=== PATIENT | male | born 1965 | race Caucasian/White ===

== ENCOUNTER 2020-06-10 07:09 | Outpatient (REF) | payer OTHER, SELFPAY ==
[2020-06-10 11:04] LABS: MANUAL DIFF FLAG NO
[2020-06-10 11:11] LABS: Basophils Percent Auto 0.3 % (0-2); Eosinophils Absolute Auto 0.1 X10*3/uL (0.0-0.4); Hematocrit 46.7 % (42-52); Imm Gran Abs Auto 0.01 X10*3/uL (0.00-0.03); Imm Gran Pct Auto 0.2 % (0.0-0.4); Lymphocytes Absolute Auto 2.4 X10*3/uL (1.2-4.9); Lymphocytes Percent Auto 42.1 % (20-40); Mean Corpuscular HGB Conc 34.3 g/dl (31.0-36.0); Mean Corpuscular Hemoglobin 31.6 pg (27.0-33.0); Mean Corpuscular Volume 92.1 fL (80-98); Mean Platelet Volume 10.6 fL (9.4-12.4); Monocytes Absolute Auto 0.6 X10*3/uL (0.1-1.2); Monocytes Percent Auto 10.4 % (2-11); Neutrophils Absolute Auto 2.7 X10*3/uL (2.0-8.3); Platelet Count 240 X10*3/uL (160-400); Red Blood Count 5.07 X10*6/uL (4.60-5.80); White Blood Count 5.8 X10*3/uL (4.8-10.8)
[2020-06-10 11:40] LABS: Alanine Aminotransferase 26 U/L (0-40); Alkaline Phosphatase 92 U/L (39-117); Anion Gap 13 (12-20); Aspartate Amino Transferase 16 U/L (5-37); Bilirubin Total 0.6 mg/dL (0.0-1.0); Blood Urea Nitrogen 22 mg/dL (9-16); Calcium 8.8 mg/dL (8.4-10.2); Carbon Dioxide 25 mmol/L (22-29); Chloride 105 mmol/L (96-108); Cholesterol 161 mg/dL; Estimated Glomerular Filt Rate > 60; Glucose Fasting 89 mg/dL (60-99); HDL Cholesterol 45 mg/dL; LDL Cholesterol Calculated 95 mg/dl; Potassium 4.4 mmol/l (3.3-5.1); Sodium 139 mmol/L (135-145); Total Protein 6.9 g/dL (6.5-8.0); Triglycerides 107 mg/dL
[2020-06-10 12:04] LABS: Prostate Specific Antigen 0.76 ng/mL (<0.05-4.0); Vitamin D 25-OH Total 20.7 ng/mL (>30)
== END 2020-06-10 07:10 | disposition home or self-care (01) ==
LOC: HO.HMGCLDS 07:09
PROVIDERS: PCP Internal Medicine; Visit Provider Internal Medicine
DX: E66.9 Obesity, unspecified (principal); E55.9 Vitamin D deficiency, unspecified; Z12.5 Encounter for screening for malignant neoplasm of prostate
CPT/HCPCS: 36415; 80053; 80061; 82306; 84153; 85025

== ENCOUNTER → 2020-06-18 07:40 | Outpatient (BNVA) | payer SELFPAY | PROVIDERS: PCP Internal Medicine; Visit Provider Internal Medicine | DX: Z02.79 Encounter for issue of other medical certificate (principal) ==

== ENCOUNTER 2021-05-17 08:51 | Outpatient (REF) | payer BC, SELFPAY ==
[2021-05-17 11:45] LABS: MANUAL DIFF FLAG NO
[2021-05-17 11:47] LABS: Basophils Percent Auto 0.4 % (0-2); Eosinophils Percent Auto 0.8 % (0-4); Hematocrit 47.2 % (42.0-52.0); Hemoglobin 16.1 g/dl (14.0-18.0); Imm Gran Abs Auto 0.01 X10*3/uL (0.00-0.03); Imm Gran Pct Auto 0.2 % (0.0-0.4); Lymphocytes Absolute Auto 1.5 X10*3/uL (1.2-4.9); Lymphocytes Percent Auto 28.7 % (20-40); Mean Corpuscular HGB Conc 34.1 g/dl (31.0-36.0); Mean Corpuscular Hemoglobin 31.8 pg (27.0-33.0); Mean Corpuscular Volume 93.1 fL (80.0-98.0); Mean Platelet Volume 10.2 fL (9.4-12.4); Monocytes Absolute Auto 0.9 X10*3/uL (0.1-1.2); Monocytes Percent Auto 16.3 % (2-11); Neutrophils Absolute Auto 2.8 x10*3/uL (2.0-8.3); Neutrophils Percent Auto 53.6 % (45-73); Platelet Count 264 X10*3/uL (160-400); Red Blood Count 5.07 X10*6/uL (4.60-5.80); Red Cell Distribution Width 11.9 % (11.0-16.0); White Blood Count 5.3 X10*3/uL (4.8-10.8)
[2021-05-17 12:21] LABS: Alanine Aminotransferase 28 U/L (0-40); Albumin Level 4.2 g/dL (3.5-5.0); Alkaline Phosphatase 95 U/L (39-117); Anion Gap 11 (12-20); Aspartate Amino Transferase 18 U/L (5-37); Bilirubin Total 0.8 mg/dL (0.0-1.0); Blood Urea Nitrogen 21 mg/dL (9-16); Calcium 9.5 mg/dL (8.4-10.2); Carbon Dioxide 29 mmol/L (22-29); Chloride 104 mmol/L (96-108); Cholesterol 153 mg/dL; Estimated Glomerular Filt Rate > 60; Glucose Fasting 91 mg/dL (60-99); HDL Cholesterol 38 mg/dL; LDL Cholesterol Calculated 99 mg/dl; Potassium 4.8 mmol/L (3.3-5.1); Sodium 139 mmol/L (135-145); Total Protein 7.1 g/dL (6.5-8.0); Triglycerides 81 mg/dL
[2021-05-17 12:44] LABS: Thyroid Stimulating Hormone 0.94 uIU/mL (0.32-4.0); Vitamin D 25-OH Total 22.8 ng/mL (>30)
[2021-05-17 13:29] LABS: PSA,Total (Free>4and<10) 0.77 ng/mL (0.00-4.00)
== END 2021-05-17 08:52 | disposition home or self-care (01) ==
LOC: HO.HMGCLDS 08:51
PROVIDERS: PCP Internal Medicine; Visit Provider Internal Medicine
DX: I10 Essential (primary) hypertension (principal); E55.9 Vitamin D deficiency, unspecified; Z12.5 Encounter for screening for malignant neoplasm of prostate
CPT/HCPCS: 36415; 80053; 80061; 82306; 84153; 84443; 85025

== ENCOUNTER 2022-03-25 07:28 | Outpatient (REF) | payer BC, SELFPAY ==
[2022-03-25 11:27] LABS: MANUAL DIFF FLAG NO
[2022-03-25 11:38] LABS: Basophils Percent Auto 0.6 % (0-2); Eosinophils Absolute Auto 0.1 X10*3/uL (0.0-0.4); Eosinophils Percent Auto 1.3 % (0-4); Hematocrit 45.2 % (42.0-52.0); Hemoglobin 15.6 g/dl (14.0-18.0); Imm Gran Abs Auto 0.01 X10*3/uL (0.00-0.03); Imm Gran Pct Auto 0.2 % (0.0-0.4); Lymphocytes Absolute Auto 1.6 X10*3/uL (1.2-4.9); Lymphocytes Percent Auto 30.6 % (20-40); Mean Corpuscular HGB Conc 34.5 g/dl (31.0-36.0); Mean Corpuscular Hemoglobin 31.4 pg (27.0-33.0); Mean Corpuscular Volume 90.9 fL (80.0-98.0); Mean Platelet Volume 10.9 fL (9.4-12.4); Monocytes Absolute Auto 0.7 X10*3/uL (0.1-1.2); Monocytes Percent Auto 12.9 % (2-11); Neutrophils Absolute Auto 2.8 x10*3/uL (2.0-8.3); Neutrophils Percent Auto 54.4 % (45-73); Platelet Count 255 X10*3/uL (160-400); Red Blood Count 4.97 X10*6/uL (4.60-5.80); Red Cell Distribution Width 12.4 % (11.0-16.0); White Blood Count 5.2 X10*3/uL (4.8-10.8)
[2022-03-25 12:16] LABS: Alanine Aminotransferase 44 U/L (0-40); Albumin Level 4.4 g/dL (3.5-5.0); Alkaline Phosphatase 78 U/L (39-117); Anion Gap 15 (12-20); Aspartate Amino Transferase 26 U/L (5-37); Bilirubin Total 0.7 mg/dL (0.0-1.0); Blood Urea Nitrogen 23 mg/dL (9-16); Calcium 9.2 mg/dL (8.4-10.2); Carbon Dioxide 27 mmol/L (22-29); Chloride 100 mmol/L (96-108); Cholesterol 155 mg/dL; Estimated Glomerular Filt Rate > 60; Glucose Fasting 95 mg/dL (60-99); HDL Cholesterol 37 mg/dL; LDL Cholesterol Calculated 103 mg/dl; Sodium 138 mmol/L (135-145); Total Protein 7.3 g/dL (6.5-8.0); Triglycerides 75 mg/dL
[2022-03-25 12:21] LABS: Thyroid Stimulating Hormone 1.13 uIU/mL (0.32-4.0)
== END 2022-03-25 07:29 | disposition home or self-care (01) ==
LOC: HO.WFDLDS 07:28
PROVIDERS: Visit Provider Internal Medicine
DX: I10 Essential (primary) hypertension (principal); E55.9 Vitamin D deficiency, unspecified
CPT/HCPCS: 36415; 80053; 80061; 82306; 84443; 85025

== ENCOUNTER 2022-05-12 07:25 | Outpatient (REF) | payer BC, SELFPAY ==
[2022-05-12 10:51] LABS: MANUAL DIFF FLAG NO
[2022-05-12 10:58] LABS: Basophils Percent Auto 0.5 % (0-2); Eosinophils Absolute Auto 0.1 X10*3/uL (0.0-0.4); Hemoglobin 16.1 g/dl (14.0-18.0); Imm Gran Abs Auto 0.02 X10*3/uL (0.00-0.03); Imm Gran Pct Auto 0.3 % (0.0-0.4); Lymphocytes Absolute Auto 1.7 X10*3/uL (1.2-4.9); Lymphocytes Percent Auto 27.3 % (20-40); Mean Corpuscular HGB Conc 34.3 g/dl (31.0-36.0); Mean Corpuscular Hemoglobin 31.5 pg (27.0-33.0); Mean Platelet Volume 10.5 fL (9.4-12.4); Monocytes Absolute Auto 0.8 X10*3/uL (0.1-1.2); Monocytes Percent Auto 12.6 % (2-11); Neutrophils Absolute Auto 3.7 x10*3/uL (2.0-8.3); Neutrophils Percent Auto 58.3 % (45-73); Platelet Count 248 X10*3/uL (160-400); Red Blood Count 5.11 X10*6/uL (4.60-5.80); Red Cell Distribution Width 11.9 % (11.0-16.0); White Blood Count 6.3 X10*3/uL (4.8-10.8)
[2022-05-12 11:33] LABS: Anion Gap 8 (12-20); Blood Urea Nitrogen 25 mg/dL (9-16); Calcium 9.2 mg/dL (8.4-10.2); Carbon Dioxide 32 mmol/L (22-29); Chloride 100 mmol/L (96-108); Estimated Glomerular Filt Rate > 60; Glucose Random 98 mg/dL (60-115); Potassium 3.8 mmol/L (3.3-5.1); Sodium 136 mmol/L (135-145)
[2022-05-12 11:41] LABS: Appearance Urine Clear; Color Urine Yellow; Glucose Urine UA Negative (Negative); Leukocyte Esterase Urine Negative (Negative); Nitrite Urine Negative (Negative); PH 5.5 (5.0-9.0); Urine Blood Negative (Negative); Urine Ketones Negative (Negative); Urine Protein Negative (Neg-Trace)
[2022-05-12 11:48] LABS: Bacteria Urine None Seen (None Seen); Hyaline Casts Urine 0-2 /LPF (0-2); RBC Urine 0-2 /HPF (0-2); Squamous Epithelial Cell Urine 0-2 /HPF (0-2); WBC Urine 0-5 /HPF (0-5)
== END 2022-05-12 07:26 | disposition home or self-care (01) ==
LOC: HO.WFDLDS 07:25
PROVIDERS: Visit Provider Internal Medicine
DX: R30.0 Dysuria (principal)
CPT/HCPCS: 36415; 80048; 81001; 85025; 86140; 87086

== ENCOUNTER 2022-08-08 11:12 | Outpatient (REF) | payer BC, SELFPAY ==
[2022-08-08 14:11] LABS: MANUAL DIFF FLAG NO
[2022-08-08 14:22] LABS: Basophils Percent Auto 0.5 % (0-2); Eosinophils Absolute Auto 0.1 X10*3/uL (0.0-0.4); Eosinophils Percent Auto 0.8 % (0-4); Hematocrit 44.6 % (42.0-52.0); Hemoglobin 15.6 g/dl (14.0-18.0); Imm Gran Abs Auto 0.02 X10*3/uL (0.00-0.03); Imm Gran Pct Auto 0.3 % (0.0-0.4); Lymphocytes Absolute Auto 1.8 X10*3/uL (1.2-4.9); Lymphocytes Percent Auto 28.9 % (20-40); Mean Corpuscular Volume 91.4 fL (80.0-98.0); Mean Platelet Volume 10.6 fL (9.4-12.4); Monocytes Absolute Auto 0.8 X10*3/uL (0.1-1.2); Monocytes Percent Auto 12.3 % (2-11); Neutrophils Absolute Auto 3.5 x10*3/uL (2.0-8.3); Neutrophils Percent Auto 57.2 % (45-73); Platelet Count 280 X10*3/uL (160-400); Red Blood Count 4.88 X10*6/uL (4.60-5.80); Red Cell Distribution Width 12.2 % (11.0-16.0); White Blood Count 6.2 X10*3/uL (4.8-10.8)
[2022-08-08 15:06] LABS: Alanine Aminotransferase 31 U/L (0-40); Albumin Level 4.2 g/dL (3.5-5.0); Alkaline Phosphatase 96 U/L (39-117); Anion Gap 13 (12-20); Aspartate Amino Transferase 20 U/L (5-37); Bilirubin Direct 0.2 mg/dL (0.0-0.5); Bilirubin Total 0.8 mg/dL (0.0-1.0); Blood Urea Nitrogen 20 mg/dL (9-16); Calcium 9.5 mg/dL (8.4-10.2); Carbon Dioxide 29 mmol/L (22-29); Chloride 102 mmol/L (96-108); Cholesterol 157 mg/dL; Estimated Glomerular Filt Rate > 60; Glucose Random 90 mg/dL (60-115); HDL Cholesterol 39 mg/dL; LDL Cholesterol Calculated 102 mg/dl; Potassium 4.4 mmol/L (3.3-5.1); Sodium 140 mmol/L (135-145); Total Protein 7.2 g/dL (6.5-8.0); Triglycerides 83 mg/dL
[2022-08-09 14:21] LABS: HBc Num1 0.08 S/CO (0.00-0.79); HBsAGNum1 0.36 S/CO (0.00-0.99); HIV AB/AG Nonreactive (Nonreactive); HIV Num 1 0.06 S/CO (0.00-0.99); Hepatitis B Core Antibody Nonreactive (Nonreactive); Hepatitis B Surface Antigen Negative (Negative); ~HepC Num1 0.15 S/CO (0.00-0.79); ~Hepatitis B Surface Antibody NONREACTIVE (Nonreactive); ~Hepatitis C Antibody Nonreactive (Nonreactive)
[2022-08-10 14:14] LABS: TS Negative Control Passed; TS Panel A 0; TS Panel B 2; TS Positive Control Passed; TSpotTB Negative (Negative)
== END 2022-08-08 11:13 | disposition home or self-care (01) ==
LOC: HO.WFDLDS 11:12
PROVIDERS: Visit Provider Physician Assistant Medical
DX: L63.8 Other alopecia areata (principal); Z79.899 Other long term (current) drug therapy
CPT/HCPCS: 36415; 80048; 80061; 80076; 82550; 85025; 86481; 86704; 86706; 86803; 87340; 87389

== ENCOUNTER 2023-02-01 14:21 | Outpatient (REF) | payer BC, SELFPAY ==
--- NOTE | ~2023-02-01 | XR_ITS ---
EXAMINATION: XR KNEE, RIGHT CLINICAL INFORMATION: RIGHT KNEE PAIN, PREPATELLAR REGION COMPARISON: None available. TECHNIQUE: Four views of the right knee. FINDINGS: There is prepatellar soft tissue swelling over the patella and the infrapatellar tendon. No air in the soft tissue and no radiopaque foreign body. Probable small suprapatellar joint effusion. No fracture. No dislocation. No focal bone lesion. Joint spaces are normal. Small enthesophyte at the insertion of the quadriceps tendon at the superior pole of the patella. XR/XR knee RT 4V IMPRESSION: Prepatellar soft tissue swelling over the patella and infrapatellar tendon. Probable small suprapatellar joint effusion. No acute osseous abnormality.
[2023-02-01 16:03] LABS: MANUAL DIFF FLAG NO
[2023-02-01 16:10] LABS: Basophils Percent Auto 0.3 % (0-2); Eosinophils Percent Auto 0.3 % (0-4); Hematocrit 43.1 % (42.0-52.0); Hemoglobin 14.9 g/dl (14.0-18.0); Imm Gran Abs Auto 0.02 X10*3/uL (0.00-0.03); Imm Gran Pct Auto 0.3 % (0.0-0.4); Lymphocytes Absolute Auto 1.5 X10*3/uL (1.2-4.9); Lymphocytes Percent Auto 19.6 % (20-40); Mean Corpuscular HGB Conc 34.6 g/dl (31.0-36.0); Mean Corpuscular Hemoglobin 31.1 pg (27.0-33.0); Mean Platelet Volume 10.9 fL (9.4-12.4); Monocytes Absolute Auto 0.8 X10*3/uL (0.1-1.2); Monocytes Percent Auto 9.9 % (2-11); Neutrophils Absolute Auto 5.5 x10*3/uL (2.0-8.3); Neutrophils Percent Auto 69.6 % (45-73); Platelet Count 224 X10*3/uL (160-400); Red Blood Count 4.79 X10*6/uL (4.60-5.80); Red Cell Distribution Width 11.9 % (11.0-16.0); White Blood Count 7.8 X10*3/uL (4.8-10.8)
[2023-02-01 16:18] LABS: C Reactive Protein 0.56 mg/dL (< or = 0.50); Uric Acid 5.4 mg/dL (3.4-7.0)
== END 2023-02-01 14:22 | disposition home or self-care (01) ==
LOC: HO.HMGCX 14:21
PROVIDERS: PCP Internal Medicine; Visit Provider Internal Medicine
DX: I10 Essential (primary) hypertension (principal); M70.40 Prepatellar bursitis, unspecified knee
CPT/HCPCS: 36415; 73564; 84550; 85025; 86140

== ENCOUNTER 2023-02-17 06:58 | Day surgery (SDC) | payer BC, SELFPAY ==
--- NOTE | 2023-02-16 12:10 | P.CONAN_ITS ---
Documented by User: Dana Mendez NP 02/16/23 12:26 HPI - Anesthesia Eval Consult details Narrative: 57yo M for Upper Endoscopy and Colonoscopy Wegovy injections on Tuesdays. Held 02/14/23 dose. [facility] Past Medical History Medical History (Updated 02/17/23 @ 08:36 by Estella Schroeder MD) Chest pain HTN (hypertension) Surgical History Surgical History (Updated 02/17/23 @ 08:37 by Estella Schroeder MD) H/O colonoscopy History of dental surgery S/P carpal tunnel release S/P tonsillectomy Social History Social History Patient Tobacco Use Status: Never used Tobacco Use of substances other than those prescribed or required for medical reasons: No Are you DNR?: No Advance Directives: No Advance Directives Information Provided: Yes Recently lost weight without trying: No Poor oral hygiene: No Meds Allergies Allergy/AdvReac Type Severity Reaction Status Date / Time No Known Allergies Allergy Verified 02/16/23 12:13 Home Medications Medication Instructions Recorded Confirmed Last Taken Type semaglutide (weight loss) 2.4 mg subcut 02/16/23 02/16/23 Unknown History mg/0.75 mL subcutaneous pen injector ([employer]) Exam Exam Date and Time: February 16, 2023 1210 Assessment and Plan Assessment Anesthesia Assessment: Chart Reviewed Documented by User: Estella Schroeder MD 02/17/23 08:39 HPI - Anesthesia Eval Consult details Narrative: 57yo M for Upper Endoscopy and Colonoscopy Wegovy (semaglutide) injections on Tuesdays. Held 02/14/23 dose. Last dose February 07 [facility] Active Problems Active Problems: HTN Increased BMI Past Medical History Medical History (Updated 02/17/23 @ 08:36 by Estella Schroeder MD) Chest pain HTN (hypertension) Family History Family history of problems with anesthesia: No Surgical History Surgical History (Updated 02/17/23 @ 08:37 by Estella Schroeder MD) H/O colonoscopy History of dental surgery S/P carpal tunnel release S/P tonsillectomy History of Problems with Anesthesia: No Social History Social History Patient Tobacco Use Status: Never used Tobacco Use of substances other than those prescribed or required for medical reasons: No Are you DNR?: No Advance Directives: No Advance Directives Information Provided: Yes Recently lost weight without trying: No Poor oral hygiene: No Meds Allergies Allergy/AdvReac Type Severity Reaction Status Date / Time No Known Allergies Allergy Verified 02/16/23 12:13 Home Medications Medication Instructions Recorded Confirmed Last Taken Type semaglutide (weight loss) 2.4 mg subcut 02/16/23 02/16/23 Unknown History mg/0.75 mL subcutaneous pen injector ([employer]) Exam Height,Weight and Vital Signs: Height 5 ft 9 in Weight 95.254 kg Vital Signs Temp Pulse Resp BP Pulse Ox O2 Del Method 02/17/23 08:14 97.1 F 60 20 126/83 97 Room Air Airway Mallampati Class: II TM Dist: >3cm Neck ROM: Full Loose/Missing/Broken Teeth: No (Top front caps recent. Aware of possibility of damage with bite block, camera insertion) Heart: RRR Lungs: CTAB Assessment and Plan Assessment Anesthesia Assessment: Anesthesia Plan Discussed Final Anesthetic Review Family History of Problems with Anesthesia: No History of Problems with Anesthesia: No NPO: Yes ASA Class: III Final Preanesthetic Review: No Changes in Pt Med Stat, Meds/Allgs Chart Reviewed, Consent Obtained/Reviewed and Anes Risks/Benef Reviewed Patient Risk: Intermediate Procedure Risk: Low Assessment/Block/Sedation in SS: Assess/Block/Sedation-SS Anesthetic Plan Anesthetic Plan: MAC: Disposition: Standard PACU
--- OUTSIDE RECORDS SUMMARY | 2023-02-17 07:01 | XMS_ITS | Patient Health Record ---
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 Name Role Phone BerhaneGagan reed Primary Care Provider ALLERGIES Allergen (clinical drug ingredient) Drug/Non Drug Allergy documented on EMR Reaction Allergy Type Onset Date Status lisinopril Lisinopril cough Drug Allergy Activ e RESULTS Component Value Reference Range Notes Complete Blood Count Auto Di ff Reviewed date:2022 11:41:57 AM Interpretation:Normal Performing Lab:[facility], [address] [place] [phone] Notes/Report: White Blood Count 5.2 4.8-10.8 X10*3/uL Red Blood Count 4.97 4.60-5.80 X10*6/uL Hemoglobin 15.6 14.0-18.0 g/dl Hematocrit 45.2 42.0-52.0 % Mean Corpuscular Volume 90.9 80.0-98.0 fL Mean Corpuscular Hemoglobin 31.4 27.0-33.0 pg Mean Corpuscular HGB Conc 34.5 31.0-36.0 g/dl Red Cell Distribution Width 12.4 11.0-16.0 % Platelet Count 255 160-400 X10*3/uL Mean Platelet Volume 10.9 9.4-12.4 fL Neutrophils Percent Auto 54.4 45-73 % Imm Gran Pct Auto 0.2 0.0-0.4 % Lymphocytes Percent Auto 30.6 20-40 % Monocytes Percent Auto 12.9 2-11 % Eosinophils Percent Auto 1.3 0-4 % Basophils Percent Auto 0.6 0-2 % NRBC Pct Auto 0.0 0.0-0.2 /100WBC Neutrophils Absolute Auto 2.8 2.0-8.3 x10*3/u L Imm Gran Abs Auto 0.01 0.00-0.03 X10*3/uL Lymphocytes Absolute Auto 1.6 1.2-4.9 X10*3/u L Monocytes Absolute Auto 0.7 0.1-1.2 X10*3/uL Eosinophils Absolute Auto 0.1 0.0-0.4 X10*3/u L Basophils Absolute Auto 0.0 0.0-0.2 X10*3/uL NRBC Abs Auto 0.000 0.0-0.012 X10*3/uL Comprehensive [place]. Panel Fa st Reviewed date:2022 12:39:28 PM Interpretation:Abnormal Performing Lab:[facility], [address] [place] [phone] Notes/Report: Sodium 138 135-145 mmol/L Potassium 4.0 3.3-5.1 mmol/L Chloride 100 96-108 mmol/L Carbon Dioxide 27 22-29 mmol/L Anion Gap 15 12-20 Blood Urea Nitrogen 23 9-16 mg/dL Creatinine 1.06 0.5-1.4 mg/dL Estimated Glomerular Filt Rate > 60 NOTE: For -Afghan individuals, multiply the result by 1.210. Chronic Kidney Disease: Estimated GFR < 60 mL/min/1.73m2 Severe Kidney Disease: Estimated GFR < 15 mL/min/1.73m2 Glucose Fasting 95 60-99 mg/dL Calcium 9.2 8.4-10.2 mg/dL Bilirubin Total 0.7 0.0-1.0 mg/dL Aspartate Amino Transferase 26 5-37 U/L Alanine Aminotransferase 44 0-40 U/L Total Protein 7.3 6.5-8.0 g/dL Albumin Level 4.4 3.5-5.0 g/dL Alkaline Phosphatase 78 39-117 U/L Lipid Panel Reviewed date:2022 12:39:28 PM Interpretation:Normal Performing Lab:[facility], [address] [place] [phone] Notes/Report: Triglycerides 75 Desirable Triglyceride: less than 150 mg/dL Borderline High Triglyceride 150-199 mg/dL High Triglyceride: 200-499 mg/dL Very High Triglyceride: greater than or equal to 5OO mg/dL Cholesterol 155 Desirable Cholesterol: less than 200 mg/dL Borderline High Cholesterol: 200-239 mg/dL High Cholesterol: greater than 239 mg/dL LDL Cholesterol Calculated 103 Desirable LDL: less than 100 mg/dL Near Optimal/Above Optimal LDL: 110-129 mg/dL Borderline High LDL: 130-159 mg/dL High LDL: 160-189 mg/dL Very High LDL: greater than or equal to 190 mg/dL HDL Cholesterol 37 Desirable HDL: greater than 40 mg/dL Note: This HDL assay may give artificially low results in patients with liver disease. Vitamin D 25-OH Total Reviewed date:2022 12:39:28 PM Interpretation:Normal Performing Lab:[address] [phone] Notes/Report: Vitamin D 25-OH Total 28.0 >30 ng/mL Health Based Reference Values* < 20 ng/mL Deficient 20-30 ng/mL Insufficient > 30 ng/mL Sufficient *Safia SHORT. N Engl J Med. 2007;357:266-280 Care must be taken in interpreting Vitamin D results from different laboratories and methodologies. Published data demonstrated that results from patients undergoing hemodialysis may show a negative bias when tested with various automated 25-OH vitamin D assays when compared to LC-MS/MS. When testing samples from patients whose predominant form of Vitamin D is Vitamin D2, such as patients receiving Vitamin D2 supplementation, results that are subtherapeutic should be confirmed with another method such as LC-MS/MS. Thyroid Stimulating Hormone Reviewed date:2022 12:39:44 PM Interpretation:Normal Performing Lab:[address] [phone] Notes/Report: Thyroid Stimulating Hormone 1.13 0.32-4.0 uIU/ mL TSH 3rd Generation ([facility]) Urine Culture Reviewed date:05/13/2022 09:51:30 AM Interpretation:Negative Performing Lab:[address] [phone] Notes/Report: Urine Culture No growth. Complete Blood Count Auto Di ff Reviewed date:05/12/2022 11:06:10 AM Interpretation:Normal Performing Lab:[address] [phone] Notes/Report: White Blood Count 6.3 4.8-10.8 X10*3/uL Red Blood Count 5.11 4.60-5.80 X10*6/uL Hemoglobin 16.1 14.0-18.0 g/dl Hematocrit 47.0 42.0-52.0 % Mean Corpuscular Volume 92.0 80.0-98.0 fL Mean Corpuscular Hemoglobin 31.5 27.0-33.0 pg Mean Corpuscular HGB Conc 34.3 31.0-36.0 g/dl Red Cell Distribution Width 11.9 11.0-16.0 % Platelet Count 248 160-400 X10*3/uL Mean Platelet Volume 10.5 9.4-12.4 fL Neutrophils Percent Auto 58.3 45-73 % Imm Gran Pct Auto 0.3 0.0-0.4 % Lymphocytes Percent Auto 27.3 20-40 % Monocytes Percent Auto 12.6 2-11 % Eosinophils Percent Auto 1.0 0-4 % Basophils Percent Auto 0.5 0-2 % NRBC Pct Auto 0.0 0.0-0.2 /100WBC Neutrophils Absolute Auto 3.7 2.0-8.3 x10*3/u L Imm Gran Abs Auto 0.02 0.00-0.03 X10*3/uL Lymphocytes Absolute Auto 1.7 1.2-4.9 X10*3/u L Monocytes Absolute Auto 0.8 0.1-1.2 X10*3/uL Eosinophils Absolute Auto 0.1 0.0-0.4 X10*3/u L Basophils Absolute Auto 0.0 0.0-0.2 X10*3/uL NRBC Abs Auto 0.000 0.0-0.012 X10*3/uL Basic Metabolic Panel Reviewed date:05/12/2022 11:42:24 AM Interpretation:Abnormal Performing Lab:[facility], [address] [place] [phone] Notes/Report: Sodium 136 135-145 mmol/L Potassium 3.8 3.3-5.1 mmol/L Chloride 100 96-108 mmol/L Carbon Dioxide 32 22-29 mmol/L Anion Gap 8 12-20 Blood Urea Nitrogen 25 9-16 mg/dL Creatinine 1.13 0.5-1.4 mg/dL Estimated Glomerular Filt Rate > 60 NOTE: For -Afghan individuals, multiply the result by 1.210. Chronic Kidney Disease: Estimated GFR < 60 mL/min/1.73m2 Severe Kidney Disease: Estimated GFR < 15 mL/min/1.73m2 Glucose Random 98 60-115 mg/dL Calcium 9.2 8.4-10.2 mg/dL C Reactive Protein Reviewed date:05/12/2022 11:42:36 AM Interpretation:Normal Performing Lab:[address] [phone] Notes/Report: C Reactive Protein 0.50 < or = 0.50 mg/dL UA ClnCatch+Micro w/rflx Cul t Reviewed date:05/12/2022 12:28:36 PM Interpretation:Negative Performing Lab:[address] [phone] Notes/Report: [id number] Urine, Clean Catch Color Urine Yellow Appearance Urine Clear PH 5.5 5.0-9.0 Glucose Urine UA Negative Negative mg/dL Urine Blood Negative Negative Specific [place] - Urine 1.020 1.005-1.025 Urine Protein Negative Neg-Trace mg/dL Urine Ketones Negative Negative mg/dL Nitrite Urine Negative Negative Leukocyte Esterase Urine Negative Negative RBC Urine 0-2 0-2 /HPF WBC Urine 0-5 0-5 /HPF Squamous Epithelial Cell Urine 0-2 0-2 /HPF Bacteria Urine None Seen None Seen Hyaline Casts Urine 0-2 0-2 /LPF Uric Acid Reviewed date:02/01/2023 04:32:53 PM Interpretation:Normal Performing Lab:[address] [phone] Notes/Report: Uric Acid 5.4 3.4-7.0 mg/dL Complete Blood Count Auto Di ff Reviewed date:02/01/2023 04:34:10 PM Interpretation:Normal Performing Lab:[address] [phone] Notes/Report: White Blood Count 7.8 4.8-10.8 X10*3/uL Red Blood Count 4.79 4.60-5.80 X10*6/uL Hemoglobin 14.9 14.0-18.0 g/dl Hematocrit 43.1 42.0-52.0 % Mean Corpuscular Volume 90.0 80.0-98.0 fL Mean Corpuscular Hemoglobin 31.1 27.0-33.0 pg Mean Corpuscular HGB Conc 34.6 31.0-36.0 g/dl Red Cell Distribution Width 11.9 11.0-16.0 % Platelet Count 224 160-400 X10*3/uL Mean Platelet Volume 10.9 9.4-12.4 fL Neutrophils Percent Auto 69.6 45-73 % Imm Gran Pct Auto 0.3 0.0-0.4 % Lymphocytes Percent Auto 19.6 20-40 % Monocytes Percent Auto 9.9 2-11 % Eosinophils Percent Auto 0.3 0-4 % Basophils Percent Auto 0.3 0-2 % NRBC Pct Auto 0.0 0.0-0.2 /100WBC Neutrophils Absolute Auto 5.5 2.0-8.3 x10*3/u L Imm Gran Abs Auto 0.02 0.00-0.03 X10*3/uL Lymphocytes Absolute Auto 1.5 1.2-4.9 X10*3/u L Monocytes Absolute Auto 0.8 0.1-1.2 X10*3/uL Eosinophils Absolute Auto 0.0 0.0-0.4 X10*3/u L Basophils Absolute Auto 0.0 0.0-0.2 X10*3/uL NRBC Abs Auto 0.000 0.0-0.012 X10*3/uL C Reactive Protein Reviewed date:02/01/2023 04:33:08 PM Interpretation:Abnormal Performing Lab:[facility], [address] [place] [phone] Notes/Report: C Reactive Protein 0.56 < or = 0.50 mg/dL XR knee RT 4V Reviewed date:02/01/2023 03:46:16 PM Interpretation:Abnormal Performing Lab: Notes/Report: [facility] [place] [address] XRay Report Signed Patient: Damien Sheehan MR#: [id number] : 1965 Acct:[id number] Age/Sex: 57 / M ADM Date: 02/01/23 Loc: HO.HMGCX Attending Dr: Gagan Last DO Ordering Physician: Gagan Last DO Date of Service: 02/01/23 Procedure(s): XR knee RT 4V Accession Number(s): [id number] cc: Gagan Last DO EXAMINATION: XR KNEE, RIGHT CLINICAL INFORMATION: RIGHT KNEE PAIN, PREPATELLAR REGION COMPARISON: None available. TECHNIQUE: Four views of the right knee. FINDINGS: There is prepatellar soft tissue swelling over the patella and the infrapatellar tendon. No air in the soft tissue and no radiopaque foreign body. Probable small suprapatellar joint effusion. No fracture. No dislocation. No focal bone lesion. Joint spaces are normal. Small enthesophyte at the insertion of the quadriceps tendon at the superior pole of the patella. XR/XR knee RT 4V IMPRESSION: Prepatellar soft tissue swelling over the patella and infrapatellar tendon. Probable small suprapatellar joint effusion. No acute osseous abnormality. Dictated By: Evans Mejia MD Signed By: <Electronically signed by Evans Mejia MD in OV> 02/01/23 1505 DD/ 1445 TD/TT: Right Of Way Appraiser: HANK REASON FOR REFERRAL Reason Alopecia Diagnosis 1 Alopecia (L65.9) Referral Organization Gagan Thayer FACP Referring Provider First Name Gagan Referring Provider Last Name Berhane Referring Provider Speciality Internal edicine Referred Provider Gene Hayes Referred Provider Specialty Dermatology General Notes PATIENT WILL C ALL YOUR OFFICE TO SCHEDULE AN APPOINTMENT, Lilliana Bradley 07/22/2022 09:58:11 AM EST > referral faxed. Referral Priority Routine Reason F/U Colonoscopy Diagnosis 1 Encounter for genera l adult medical examination without abnormal findings (Z00.00) Referral Organization Gagan Thayer FACP Referring Provider First Name Gagan Referring Provider Last Name Berhane Referring Provider Speciality Internal edicine Referred Provider Paulino Orozco Referred Provider Specialty Gastroentero logy General Notes Lilliana Bradley 023 11:56:10 AM EST > referral faxed; letter to patient. Referral Priority Routine Referral Appointment Date 12/08/2022 MEDICATIONS Medication SIG (Take, Route, Frequency, Duration) Notes Start Date End Date Status Sildenafil Citrate 50 MG 1 tablet as nee ded Orally Once a day Active Multivitamin - 1 tablet Orally Once a day Active Wegovy 2.4 MG/0.75ML 0.75 mL Subcutaneou s Once a week 08/08/2022 Active Losartan Potassium 50 MG 1 tablet Orally Once a day for 90 days Active Ibuprofen 800 MG 1 tablet with food o r milk as needed Orally Three times a day for 30 days 02/01/2023 Active IMMUNIZATIONS Vaccine Route Administration Date Status Comme nts COVID-19 Pfizer BioNTech Unknown 09/25/2020 Administere d COVID-19 Pfizer BioNTech Unknown 09/04/2020 Administere d COVID-19 Moderna Vaccine Unknown 05/27/2021 Administere d Influenza Unknown 05/30/2014 Refused Influenza Unknown 07/24/2020 Refused Influenza Unknown 03/08/2022 Refused SOCIAL HISTORY Tobacco Use: Social History Observation Description Date Details (start date - stop date) Never Smoker NA - NA Sex Assigned At : Social History Observation Description Sex Assigned At Unknown Tobacco Use/Smoking Question Answer Notes Patient is a nonsmoker Additional Findings: Tobacco Non-User Cu rrent non-smoker, currently using no form of tobacco Alcohol Screen Question Answer Notes Did you have a drink contain ing alcohol in the past year? Yes How often did you have a dri nk containing alcohol in the past year? 2 to 4 times a month (2 points) How many drinks did you have on a typical day when you were drinking in the past year? 3 or 4 drinks (1 point) How often did you have 6 or more drinks on one occasion in the past year? Never (0 point) Points 3 Interpretation Negative PROBLEMS Problem Type ICD Code Onset Dates Problem Status W/U Status Risk SNOMED Code Notes Problem Vitamin D deficiency (E55.9) Active confirmed 40273953 Problem Other obesity due to excess calories (E66.09) Active confirmed 663731605 Problem Essential hypertension (I10) Active confirmed 49977095 Problem Obesity (BMI 35.0-39.9 without comorbidity) (E66.9) Active confirmed 418877404 Problem Body mass index [BMI] 37.0-37.9, adult (Z68.37) Active confirmed 853652073 Problem Body mass index [BMI] 39.0-39.9, adult (Z68.39) Active confirmed 052364761 Problem Alopecia (L65.9) Active confirmed 36223 004 Encounters Encounter Location Date Provider Diagnosis Gagan Last DO, [address] [id number] 06/07/2022 Gagan Last DO, [address] [id number] 07/20/2022 Gagan Last Encounter for genera l adult medical examination without abnormal findings Z00.00 ; Essential hypertension I10 ; Vitamin D deficiency E55.9 ; Other obesity due to excess calories E66.09 ; Body mass index [BMI] 39.0-39.9, adult Z68.39 and Alopecia L65.9 Gagan Last DO, [address] [id number] 03/08/2022 Gaagn Last Essential hypertension I10 and Vitamin D deficiency E55.9 Gagan Last DO, [address] [id number] 01/18/2023 Gagan Last Essential hypertension I10 ; Other obesity due to excess calories E66.09 and Vitamin D deficiency E55.9 Gagan Last DO, [facility] [address] [place], [place] [id number] 02/22/2022 Gagan Last DO, [address] [id number] 02/23/2022 Gagan Last DO, [address] [id number] 05/11/2022 Gagan Last Dysuria R30.0 Gagan Last DO, [address] [id number] 05/16/2022 Gagan Last Essential hypertension I10 Gagan Last DO, [facility] [address] [place], [place] [id number] 05/17/2022 Gagan Last DO, [address] [id number] 08/05/2022 Gagan Last DO, [address] [id number] 08/08/2022 Gagan Last Essential hypertension I10 Gagan Last DO, [address] [id number] 08/28/2022 Gagan Last Other obesity due to excess calories E66.09 Gagan Last DO, [facility] [address] [place], [place] [id number] 09/14/2022 Gagan Last DO, [facility] [address] [place], [place] [id number] 09/23/2022 Gagan Last Other obesity due to excess calories E66.09 Gagan Last DO, [facility] [address] [place], [place] [id number] 10/11/2022 Gagan Last Other obesity due to excess calories E66.09 and Essential hypertension I10 Gagan Last DO, [facility] [address] [place], [place] [id number] 10/14/2022 Gagan Last Other obesity due to excess calories E66.09 Gagan Last DO, [facility] [address] [place], [place] [id number] 11/08/2022 Gagan Last Other obesity due to excess calories E66.09 Gagan Last DO, [facility] [address] [place], [place] [id number] 11/11/2022 Gagan Last Other obesity due to excess calories E66.09 Gagan Last DO, [facility] [address] [place], [place] [id number] 11/11/2022 Gagan Last Other obesity due to excess calories E66.09 Gagan Last DO, [facility] [address] [place], [place] [id number] 11/11/2022 Gagan Last Other obesity due to excess calories E66.09 Gagan Last DO, [facility] [address] [place], [place] [id number] 11/15/2022 Gagan Last Other obesity due to excess calories E66.09 aGgan Last DO, [facility] [address] [place], [place] [id number] 01/11/2023 Gagan Last Other obesity due to excess calories E66.09 Gagan Last DO, [facility] [address] [place], [place] [id number] 01/17/2023 Gagan Last Other obesity due to excess calories E66.09 Gagan Last DO, [facility] [address] [place], [place] [id number] 01/27/2023 Gagan Last DO, [facility] [address] [place], [place] [id number] 08/08/2022 Gagan Last Other obesity due to excess calories E66.09 ; Body mass index [BMI] 37.0-37.9, adult Z68.37 ; Essential hypertension I10 and Vitamin D deficiency E55.9 Gagan Last DO, [facility] [address] [place], [place] [id number] 09/05/2022 Gagan Last DO, [facility] [address] [place], [place] [id number] 02/01/2023 Gagan Last Prepatellar bursitis of right knee M70.41 ; Other obesity due to excess calories E66.09 ; Essential hypertension I10 and Vitamin D deficiency E55.9 ASSESSMENTS Encounter Date Diagnosis Assessment Notes Treatment Notes Treatment Clinical Notes 08/08/2022 Other obesity due to excess calories (ICD-10 - E66.09) Risks and benefits of Wegovy treatment reviewed with Damien. Adverse effects reviewed. He wants to try the medication. Rx eSent 02/01/2023 Prepatellar bursitis of right knee (ICD-10 - M70.41) 07/20/2022 Encounter for general adult medical examination without abnormal findings (ICD-10 - Z00.00) 07/20/2022 Essential hypertension (ICD-10 - I10) 03/08/2022 Vitamin D deficiency (ICD-10 - E55.9) 03/08/2022 Essential hypertension (ICD-10 - I10) 01/18/2023 Other obesity due to excess calories (ICD-10 - E66.09) 01/18/2023 Essential hypertension (ICD-10 - I10) Low salt diet 05/11/2022 Dysuria (ICD-10 - R30.0) 05/16/2022 Essential hypertension (ICD-10 - I10) 08/08/2022 Essential hypertension (ICD-10 - I10) 08/28/2022 Other obesity due to excess calories (ICD-10 - E66.09) 09/23/2022 Other obesity due to excess calories (ICD-10 - E66.09) 10/11/2022 Other obesity due to excess calories (ICD-10 - E66.09) 10/14/2022 Other obesity due to excess calories (ICD-10 - E66.09) 11/08/2022 Other obesity due to excess calories (ICD-10 - E66.09) 11/11/2022 Other obesity due to excess calories (ICD-10 - E66.09) 11/11/2022 Other obesity due to excess calories (ICD-10 - E66.09) 11/11/2022 Other obesity due to excess calories (ICD-10 - E66.09) 11/15/2022 Other obesity due to excess calories (ICD-10 - E66.09) 01/11/2023 Other obesity due to excess calories (ICD-10 - E66.09) 01/17/2023 Other obesity due to excess calories (ICD-10 - E66.09) 08/08/2022 Body mass index [BMI] 37.0-37.9, adult (ICD-10 - Z68.37) Diet, exercise, weight loss. Needs to decrease his BMI. Goal weight loss of 15 pounds or more 02/01/2023 Other obesity due to excess calories (ICD-10 - E66.09) 07/20/2022 Vitamin D deficiency (ICD-10 - E55.9) 01/18/2023 Vitamin D deficiency (ICD-10 - E55.9) 10/11/2022 Essential hypertension (ICD-10 - I10) 08/08/2022 Essential hypertension (ICD-10 - I10) 02/01/2023 Essential hypertension (ICD-10 - I10) 07/20/2022 Other obesity due to excess calories (ICD-10 - E66.09) Diet, exercise, weight loss. Needs to decrease his BMI. Goal weight loss of 15 pounds 08/08/2022 Vitamin D deficiency (ICD-10 - E55.9) 02/01/2023 Vitamin D deficiency (ICD-10 - E55.9) 07/20/2022 Body mass index [BMI] 39.0-39.9, adult (ICD-10 - Z68.39) Diet, exercise, weight loss. Needs to decrease his BMI. Goal weight loss of 15 pounds 07/20/2022 Alopecia (ICD-10 - L65.9) PLAN OF TREATMENT Pending Test Test Name Order Date CBC w DIFF 01/18/2023 LIPOPROTEIN FRACTIONATION (LIPID PANEL) 01/18/2023 PROFILE, FASTING 01/18/2023 TSH (THYROID STIMULATING HORMONE) 2022 VITAMIN D 25-OH TOTAL 01/18/2023 XR knee RT 3V 02/01/2023 Next Appt Details Provider Name:Gagan Fowler yamilka, 07/24/2023 09:00:00 AM, [address] [place] [address], [place], [place], [phone], Insurance Providers Payer Name Payer Address Payer Phone Subscriber Number Group Number Insured Name Patient Relationship to Insured Coverage Start Date Coverage End Date [facility] [address] [place], [place] [id number] Damien Sheehan Self - patient is the insured MEDICAL (GENERAL) HISTORY Medical History History ICD Code low back pain sciatica, right hypertension, benign hemorrhoids carpal tunnel syndrome atypical chest pain with a normal stress test obesity pneumonia, 1998 anxiety Surgical History Surgery Date(Month/Year) tonsillectomy vasectomy lymph node disection (groin)
--- OUTSIDE RECORDS SUMMARY | 2023-02-17 07:01 | XMS_ITS | Patient Health Record ---
Author Name Unknown Organization [facility] Address [address] [place] [address] Care Team Providers Care Rail Project Engineer Name Role Phone Gagan Last DO Primary Care Provider Unavail able Paulino Orozco Jr Unavailable ALLERGIES No Known Allergies REASON FOR REFERRAL No Information MEDICATIONS Medication SIG (Take, Route, Frequency, Duration) Notes Start Date End Date Status Multivitamin Adults Active Wegovy 1.7 MG/0.75ML Subcutaneous for 30 Active hydroCHLOROthiazide 25 MG Oral for 90 Not-Taking Losartan Potassium 100 MG Oral for 90 Not-Taking MiraLax (colon prep) 17 GM/SCOOP mixed with Gatorade or Crystal Light Orally begin at 5:00 p.m. the day before the procedure for 1 day 12/08/2022 Active SOCIAL HISTORY Tobacco Use: Social History Observation Description Date Details (start date - stop date) Never Smoker NA - NA Sex Assigned At : Social History Observation Description Sex Assigned At Unknown Tobacco Use/Smoking Question Answer Notes Patient is a nonsmoker Alcohol Screen Question Answer Notes Did you have a drink contain ing alcohol in the past year? Yes How often did you have a dri nk containing alcohol in the past year? 2 to 3 times a week (3 points) How many drinks did you have on a typical day when you were drinking in the past year? 3 or 4 drinks (1 point) How often did you have 6 or more drinks on one occasion in the past year? Weekly (3 points) Points 7 Interpretation Positive PROBLEMS Problem Type ICD Code Onset Dates Problem Status W/U Status Risk SNOMED Code Notes Problem Colon cancer screening (Z12.11) Active confirmed 961236482 Problem Encounter for other preprocedural examination (Z01.818) Active confirmed 46629144 Problem Gastroesophageal reflux disease without esophagitis (K21.9) Active confirmed 160169100 Problem Hx of colonic polyps (Z86.010) Active confirmed 158261597 Encounters Encounter Location Date Provider Diagnosis [facility] [address] [place] [phone] 02/17/2023 Paulino Orozco Jr [facility] [address] [place] [phone] 12/08/2022 Paulino Orozco Jr Gastroesophageal reflux disease without esophagitis K21.9 ; Colon cancer screening Z12.11 and Hx of colonic polyps Z86.010 [facility] [address] [place] [phone] 01/03/2023 Paulino Orozco Jr ASSESSMENTS Encounter Date Diagnosis Assessment Notes Treatment Notes Treatment Clinical Notes 12/08/2022 Gastroesophageal ref lux disease without esophagitis (ICD-10 - K21.9) 12/08/2022 Colon cancer screeni ng (ICD-10 - Z12.11) 12/08/2022 Hx of colonic polyps (ICD-10 - Z86.010) PLAN OF TREATMENT Future Test Test Name Order Date COLONOSCOPY 04/05/2017 UPPER GI ENDOSCOPY 12/08/2022 COLONOSCOPY 12/08/2022 Next Appt Details Provider Name:Paulino ignacio Jr, 02/17/2023 08:20:00 AM, [address] [place] [address] , [place], [place], [phone], Insurance Providers Payer Name Payer Address Payer Phone Subscriber Number Group Number Insured Name Patient Relationship to Insured Coverage Start Date Coverage End Date [facility] [address] [place], [place] [id number] SAPNA SMITH Self - patient is the insured MEDICAL (GENERAL) HISTORY Medical History History ICD Code hypertension chest pain with negative stress test Surgical History Surgery Date(Month/Year) tonsillectomy carpal tunnel release 2009 left hand surgery 2015 Dental surgery
[2023-02-17 07:47] VITALS: BMI 31.0
[2023-02-17 07:50] VITALS: BMI 31.0
[2023-02-17 08:14] VITALS: BP 126/83; PULSE 60; RESP 20; TEMP 36.2; O2SAT 97
[2023-02-17] MEDS: Lactated Ringers 1,000 ML 100 ML IVCONT (08:20)
--- NOTE | 2023-02-17 08:36 | MHC.SHP ---
Pre-Procedural Eval Section A Date of Service: 02/17/23 Section B Chief Complaint: screening,gerd Details of Present Illness: see h&p no changes Relevant Family History (Specify if Yes): No Relevant Social History: None Present Medications: see Short Stay Collaborative assessment Medical History: No relevant PMH History of Previous Operations: No relevant previous surgery Allergies: Allergies Allergy/AdvReac Type Severity Reaction Status Date / Time No Known Allergies Allergy Verified 02/16/23 12:13 Review of Systems Sugical H&P ROS: Negative: Constitution, Cardiovascular, Respiratory, Neurological, Psychiatric, Hem-Onc, Allergic/Immunologic, Gastrointestinal, Genitourinary, Musculoskeletal, Integumentary, Endocrine and Eyes/Ears/Nose/Throat Exam Surgical H&P Exam: Normal: HEENT, Normal: Heart, Normal: Lungs, Normal: Extremities, Normal: Abdomen, Normal: Skin and Normal: Neurological Plan Diagnosis/Plan: Unchanged I have reviewed the history and physical and performed a pertinent physical examination on my patient. No changes have occurred unless specified. Time Spent With Patient Time: Total time managing care of this patient today ____ minutes.
[2023-02-17 09:31] VITALS: BP 105/58; PULSE 57; RESP 16; TEMP 36.4; O2SAT 100
--- NOTE | 2023-02-17 09:31 | PM.OP ---
Brief Operative Note Date of Service: 02/17/23 Pre-op diagnosis: gerd screening Post-op diagnosis: same Procedure: egd colon Surgeon: Paulino Orozco Was an Cryptologic Linguist used for this Procedure?: No Estimated blood loss (mL): 2 Pathology: other Condition: stable Disposition: PACU
[2023-02-17 09:46] VITALS: BP 132/83; PULSE 51; RESP 16; TEMP 36.4; O2SAT 99
--- NOTE | 2023-02-17 09:51 | OP_ITS ---
DATE OF SERVICE: 02/17/2023 SURGEON: Paulino Orozco MD INDICATIONS: Gastroesophageal reflux disease and colorectal cancer screening. PREOPERATIVE DIAGNOSIS: POSTOPERATIVE DIAGNOSIS: PROCEDURE PERFORMED: ESTIMATED BLOOD LOSS: COMPLICATIONS: ANESTHESIA: Monitored anesthesia care. ASSISTANTS: SPECIMENS: PROCEDURES PERFORMED: Upper endoscopy with biopsy. Colonoscopy to the terminal ileum with snare polypectomy. DESCRIPTION OF PROCEDURE: A history and physical was performed. The risks and benefits of the procedure were explained to the patient. Informed consent was obtained. The patient was placed in the left lateral decubitus position. The Olympus video gastroscope was introduced into the esophagus, stomach, and duodenum. Examination was performed. The scope was removed. He was repositioned for colonoscopy. A digital rectal exam was performed and was found to be normal. The Olympus pediatric video colonoscope was introduced into the rectum and advanced to the cecum without difficulty. The cecum was identified by transillumination, palpation, and identification of ileocecal valve. Examination was performed, and the scope was removed. He tolerated both procedures well, returned to recovery in stable condition. FINDINGS: Upper endoscopy: 1. Esophagus: The esophagus was normal. There was a 1-cm area at the distal esophagus suspicious for possible Trinidad's esophagus. Biopsies were obtained from the distal esophagus. 2. Stomach: The stomach showed no evidence of masses, ulcers, or polyps. Antral biopsies were obtained. 3. Duodenum, the bulb and 2nd portion were normal. Colonoscopy: The terminal ileum was normal. The visualized colonic mucosa was within normal limits without evidence of masses or ulcers. The quality of the prep was good. A single polyp measuring less than 10 mm was identified at 70 cm from the anal verge and removed with biopsy forceps. No other polyps were seen. Retroflexed examination was remarkable for some small internal hemorrhoids. IMPRESSION: 1. Gastroesophageal reflux disease. 2. Colon polyp. RECOMMENDATION: Follow up the biopsy results. MD REGINA Virgen/NENOL / [id number]
== END 2023-02-17 10:15 | disposition home or self-care (01) ==
PROVIDERS: PCP Internal Medicine; Visit Provider Internal Medicine Gastroenterology
PROC: (CPT 45385; principal; 2023-02-17 08:20)
DX: Z12.11 Encounter for screening for malignant neoplasm of colon (principal); Z86.010 Personal history of colon polyps; K63.5 Polyp of colon; K64.8 Other hemorrhoids; K21.9 Gastro-esophageal reflux disease without esophagitis; Z80.0 Family history of malignant neoplasm of digestive organs; I10 Essential (primary) hypertension; Z79.899 Other long term (current) drug therapy
CPT/HCPCS: 45385; 43239; 88305; 88342

== ENCOUNTER → 2023-04-17 15:02 | Outpatient (BNVA) | payer SELFPAY | PROVIDERS: PCP Internal Medicine; Visit Provider Physician Assistant Medical | DX: Z02.79 Encounter for issue of other medical certificate (principal) ==

== ENCOUNTER 2023-10-13 07:14 | Outpatient (REF) | payer SELFPAY ==
[2023-10-13 11:25] LABS: MANUAL DIFF FLAG NO
[2023-10-13 11:33] LABS: Basophils Percent Auto 0.4 % (0-2); Eosinophils Absolute Auto 0.1 X10*3/uL (0.0-0.4); Hemoglobin 14.7 g/dl (14.0-18.0); Imm Gran Abs Auto 0.01 X10*3/uL (0.00-0.03); Imm Gran Pct Auto 0.2 % (0.0-0.4); Lymphocytes Absolute Auto 1.3 X10*3/uL (1.2-4.9); Lymphocytes Percent Auto 25.5 % (20-40); Mean Corpuscular Hemoglobin 32.2 pg (27.0-33.0); Mean Corpuscular Volume 91.9 fL (80.0-98.0); Monocytes Absolute Auto 0.6 X10*3/uL (0.1-1.2); Neutrophils Percent Auto 59.9 % (45-73); Platelet Count 220 X10*3/uL (160-400); Red Blood Count 4.57 X10*6/uL (4.60-5.80); Red Cell Distribution Width 11.9 % (11.0-16.0); White Blood Count 4.9 X10*3/uL (4.8-10.8)
[2023-10-13 11:44] LABS: Appearance Urine Turbid; Color Urine Yellow; Glucose Urine UA Negative (Negative); Leukocyte Esterase Urine Negative (Negative); Nitrite Urine Negative (Negative); Specific Gravity - Urine >= 1.030 (1.005-1.025); Urine Blood Negative (Negative); Urine Ketones Negative (Negative); Urine Protein Negative (Neg-Trace)
[2023-10-13 12:32] LABS: Microalbum/Creatinine Ratio Ur 4.1 ug/mg cr (<30)
[2023-10-13 12:34] LABS: PSA,Total (Free>4and<10) 0.99 ng/mL (0.00-4.00)
[2023-10-13 12:54] LABS: Alanine Aminotransferase 19 U/L (0-40); Alkaline Phosphatase 81 U/L (39-117); Anion Gap 12 (12-20); Aspartate Amino Transferase 16 U/L (5-37); Bilirubin Total 0.5 mg/dL (0.0-1.0); Blood Urea Nitrogen 19 mg/dL (9-16); Calcium 9.1 mg/dL (8.4-10.2); Carbon Dioxide 26 mmol/L (22-29); Chloride 106 mmol/L (96-108); Cholesterol 128 mg/dL (<200); Estimated Glomerular Filt Rate > 60; Glucose Fasting 86 mg/dL (60-99); HDL Cholesterol 40 mg/dL (>40); LDL Cholesterol Calculated 74 mg/dL (<100); Potassium 3.8 mmol/L (3.3-5.1); Sodium 140 mmol/L (135-145); Total Protein 6.9 g/dL (6.5-8.0); Triglycerides 72 mg/dL (<150)
[2023-10-13 12:55] LABS: Vitamin D 25-OH Total 26.4 ng/mL (>30)
== END 2023-10-13 07:15 | disposition home or self-care (01) ==
LOC: HO.WFDLDS 07:14
PROVIDERS: Visit Provider Internal Medicine
DX: I10 Essential (primary) hypertension (principal); Z68.30 Body mass index [BMI] 30.0-30.9, adult; E55.9 Vitamin D deficiency, unspecified; Z12.5 Encounter for screening for malignant neoplasm of prostate
CPT/HCPCS: 36415; 80053; 80061; 81003; 82043; 82306; 82570; 84153; 84443; 85025

== ENCOUNTER 2024-09-10 06:57 | Day surgery (SDC) | payer BC, SELFPAY ==
[2024-07-19 12:20] VITALS: BMI 31.3
--- NOTE | 2024-07-22 09:08 | HO.ANESPROP2 ---
HPI - Anesthesia Eval Consult details Narrative: 59yo M for Upper Endoscopy Anesthesia Pre-Procedure Meds Is the patient on any of the following meds?: GLP1/DPP4 PMFSH Past Medical History Medical History (Updated 07/19/24 @ 12:26 by Shari Rios RN) Chest pain Trinidad's esophagus HTN (hypertension) Family History Family history of problems with anesthesia: No Surgical History Surgical History (Updated 07/19/24 @ 12:19 by Shari Rios RN) History of esophagogastroduodenoscopy (EGD) H/O colonoscopy History of dental surgery S/P carpal tunnel release S/P tonsillectomy History of Problems with Anesthesia: No Social History Social History (Updated 07/19/24 @ 12:19 by Shari Rios RN) Household Members: Spouse Patient Tobacco Use Status: Never used Tobacco Meds Allergies Allergy/AdvReac Type Severity Reaction Status Date / Time No Known Allergies Allergy Verified 02/16/23 12:13 Home Medications ?Medication ?Instructions ?Recorded ?Confirmed ?Last Taken ?Type losartan 50 mg tablet mg DAILY 07/19/24 Unknown History multivitamin 1 tab PO DAILY 07/19/24 07/19/24 Unknown History omeprazole 20 mg capsule,delayed mg DAILY 07/19/24 Unknown History release Exam Height,Weight and Vital Signs: Height 5 ft 9 in Weight 96.162 kg Assessment and Plan Assessment Anesthesia Assessment: Chart Reviewed Final Anesthetic Review Family History of Problems with Anesthesia: No History of Problems with Anesthesia: No
[2024-09-06 12:25] VITALS: BMI 31.3
--- NOTE | 2024-09-09 08:48 | HO.ANESPROP2 ---
Documented by User: Dana Mendez NP 09/09/24 08:49 HPI - Anesthesia Eval Consult details Narrative: 59yo M for Upper Endoscopy Anesthesia Pre-Procedure Meds Is the patient on any of the following meds?: GLP1/DPP4 [facility] Past Medical History Medical History Hyperplastic polyp of intestine Chest pain Trinidad's esophagus HTN (hypertension) Family History Family history of problems with anesthesia: No Surgical History Surgical History History of esophagogastroduodenoscopy (EGD) H/O colonoscopy History of dental surgery S/P carpal tunnel release S/P tonsillectomy History of Problems with Anesthesia: No Social History Social History Household Members: Spouse Patient Tobacco Use Status: Never used Tobacco Use of substances other than those prescribed or required for medical reasons: No Are you DNR?: No Advance Directives: No Advance Directives Information Provided: Yes Meds Allergies Allergy/AdvReac Type Severity Reaction Status Date / Time No Known Allergies Allergy Verified 09/10/24 07:15 Home Medications ?Medication ?Instructions ?Recorded ?Confirmed ?Last Taken ?Type multivitamin 1 tab PO DAILY 07/19/24 09/10/24 Unknown History omeprazole 20 mg capsule,delayed mg DAILY 07/19/24 Unknown History release Exam Height,Weight and Vital Signs: Height 5 ft 9 in Weight 96.162 kg Assessment and Plan Assessment Anesthesia Assessment: Chart Reviewed Final Anesthetic Review Family History of Problems with Anesthesia: No History of Problems with Anesthesia: No Documented by User: Melany Blount MD 09/10/24 07:57 PMF Past Medical History Medical History Hyperplastic polyp of intestine Chest pain Trinidad's esophagus HTN (hypertension) Surgical History Surgical History History of esophagogastroduodenoscopy (EGD) H/O colonoscopy History of dental surgery S/P carpal tunnel release S/P tonsillectomy Social History Social History Household Members: Spouse Patient Tobacco Use Status: Never used Tobacco Use of substances other than those prescribed or required for medical reasons: No Are you DNR?: No Advance Directives: No Advance Directives Information Provided: Yes Meds Allergies Allergy/AdvReac Type Severity Reaction Status Date / Time No Known Allergies Allergy Verified 09/10/24 07:15 Home Medications ?Medication ?Instructions ?Recorded ?Confirmed ?Last Taken ?Type multivitamin 1 tab PO DAILY 07/19/24 09/10/24 Unknown History omeprazole 20 mg capsule,delayed mg DAILY 07/19/24 Unknown History release Exam Airway Mallampati Class: III TM Dist: >3cm Neck ROM: Full Loose/Missing/Broken Teeth: No Heart: RRR Lungs: CTA Assessment and Plan Final Anesthetic Review NPO: Yes ASA Class: II Final Preanesthetic Review: Meds/Allgs Chart Reviewed, Consent Obtained/Reviewed and Anes Risks/Benef Reviewed Patient Risk: Low Procedure Risk: Intermediate Anesthetic Plan Anesthetic Plan: MAC: Disposition: Standard PACU
[2024-09-10 07:17] VITALS: BMI 30.9
[2024-09-10 07:18] VITALS: BP 159/74; PULSE 51; RESP 16; TEMP 36.6; O2SAT 98
[2024-09-10] MEDS: Lactated Ringers 1,000 ML 100 ML IVCONT (07:45)
--- NOTE | 2024-09-10 08:08 | MHC.SHP ---
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 Details of Present Illness: see H&P no changes Relevant Family History (Specify if Yes): No Relevant Social History: None Present Medications: see Short Stay Collaborative assessment Medical History: No relevant PMH History of Previous Operations: No relevant previous surgery Allergies: Allergies Allergy/AdvReac Type Severity Reaction Status Date / Time No Known Allergies Allergy Verified 09/10/24 07:15 Review of Systems Sugical H&P ROS: Negative: Constitution, Cardiovascular, Respiratory, Neurological, Psychiatric, Hem-Onc, Allergic/Immunologic, Gastrointestinal, Genitourinary, Musculoskeletal, Integumentary, Endocrine and Eyes/Ears/Nose/Throat Exam Surgical H&P Exam: Normal: HEENT, Normal: Heart, Normal: Lungs, Normal: Extremities, Normal: Abdomen, Normal: Skin and Normal: Neurological Plan Diagnosis/Plan: Unchanged I have reviewed the history and physical and performed a pertinent physical examination on my patient. No changes have occurred unless specified. Time Spent With Patient Time: Total time managing care of this patient today ____ minutes.
--- NOTE | 2024-09-10 08:22 | PM.OP ---
Brief Operative Note Date of Service: 09/10/24 Pre-op diagnosis: barretts Post-op diagnosis: same Surgeon: Paulino Orozco MD Anesthesia: MAC Was an Sugar Cane Planting Equipment Operator used for this Procedure?: No Estimated blood loss (mL): 2 Pathology: other Condition: stable Disposition: PACU
[2024-09-10 08:23] VITALS: BP 134/74; PULSE 64; RESP 16; TEMP 36.3; O2SAT 97
[2024-09-10 08:38] VITALS: BP 150/84; PULSE 55; RESP 16; O2SAT 98
--- NOTE | 2024-09-10 08:51 | OP_ITS ---
DATE OF SERVICE: 09/10/2024 SURGEON: Paulino Orozco MD INDICATIONS: Trinidad esophagus. PREOPERATIVE DIAGNOSIS: POSTOPERATIVE DIAGNOSIS: PROCEDURE PERFORMED: Upper endoscopy with biopsy. ESTIMATED BLOOD LOSS: COMPLICATIONS: ANESTHESIA: ASSISTANTS: SPECIMENS: MEDICATIONS: Monitored anesthesia care. PROCEDURE DESCRIPTION: A history and physical performed. The risks and benefits of the procedure explained to the patient. Informed consent was obtained. The patient was placed in the left lateral decubitus position. The Olympus video gastroscope was introduced into the esophagus, stomach, and duodenum. Examination was performed and the scope was removed. He tolerated the procedure well and was returned to recovery area in stable condition. FINDINGS: Esophagus: The esophagus was normal. There was an irregular EG junction that was biopsied. There were no raised lesions or ulcerated areas. Stomach: The stomach showed no evidence of masses, ulcers, or polyps. Duodenal bulb and 2nd portion were normal. IMPRESSION: Trinidad esophagus. RECOMMENDATION: Follow up the biopsy results. MD REGINA Virgen/MODL / [id number]
[2024-09-10 08:52] VITALS: BP 159/99; PULSE 58; RESP 16; TEMP 36.3; O2SAT 99
== END 2024-09-10 09:07 | disposition home or self-care (01) ==
PROVIDERS: PCP Internal Medicine; Visit Provider Internal Medicine Gastroenterology
PROC: 0DJ08ZZ Inspection of Upper Intestinal Tract, Via Natural or Artificial Opening Endoscopic (ICD-10-PCS; CPT 43235; principal; 2024-09-10 08:20)
DX: K22.70 Barrett's esophagus without dysplasia (principal); I10 Essential (primary) hypertension; Z79.899 Other long term (current) drug therapy
CPT/HCPCS: 43239; 88305; 88313; 88342; J2003; J2704

== ENCOUNTER 2024-11-19 10:20 | Outpatient (AMB) | payer BC, SELFPAY ==
--- NOTE | 2024-11-19 10:31 | A.OFFPC_ITS ---
Vital Signs 11/19/24 10:37 Height 5 ft 10 in Weight 203 lb BMI 29.1 BP 169/78 H Respiration 14 Pulse 55 Pulse Source Pulse Oximeter Temp 97.7 F Temp Source Temporal Artery Scan Pulse Oximetry (%) 99 Oxygen Delivery Method Room Air Intake Visit Reasons: follow up Recoverer Required: No Accompanied by: Self / Same As Patient Allergies No Known Allergies Allergy (Verified 11/19/24 13:42) Tobacco use date assessed: 11/19/24 Dental Screening Dental Screen Date: 11/19/24 Did you have a dental visit in the last 12 months?: Yes Did you have a dental problem in the last 6 months where you did not have access to dental care?: No Was dental information given to patient?: Patient has dentist HPI follow up HPI Details 59 yr old male presents for a sick visit . Patient had a sexual encounter three months ago with a male. He received oral sex. He reports a lesion on the shaft of his penis. Some tingling sensation at the lesion. No urination issue. Patient reports he had syphilis as a young adult. Patient is and is very upset about the above episode. He has tested multiple times for STD after the above episode and consistently it has been negative. Has taken no antibiotics or medications. Elevated BP, he is experiencing, he believes is due to the heightened anxiety. [facility] Medical History (Updated 11/19/24 @ 13:57 by Tanvir Eller MD) Hyperplastic polyp of intestine Chest pain Trinidad's esophagus HTN (hypertension) Surgical History History of esophagogastroduodenoscopy (EGD) (~09/10/24) H/O colonoscopy (~02/17/23) History of dental surgery S/P carpal tunnel release S/P tonsillectomy Family History Father Esophageal cancer Mother Tongue cancer Cancer of neck Diabetes Social History Household Members: Spouse Housing: House Alcohol intake: current Alcohol intake frequency: a few times a week Patient Tobacco Use Status: Never used Tobacco service: No Current occupational status: employed Cognitive needs: No Hearing needs: Yes (has b/l hearing aids but does not use) Vision needs: Yes (rx glasses) Questionnaire PHQ-9 Over the last 2 weeks, how often have you been bothered by any of the following problems? 1. Little interest or pleasure in doing things: not at all 2. Feeling down, depressed, or hopeless: not at all 3. Trouble falling or staying asleep, or sleeping too much: not at all 4. Feeling tired or having little energy: not at all 5. Poor appetite or overeating: not at all 6. Feeling bad about yourself - or that you are a failure or have let yourself or your family down: not at all 7. Trouble concentrating on things, such as reading the newspaper or watching television: not at all 8. Moving or speaking so slowly that other people could have noticed. Or the opposite - being so fidgety or restless that you have been moving around a lot more than usual: not at all 9. Thoughts that you would be better off or of hurting yourself in some way: not at all Total score: 0 Depression Screening Interpretation: Negative Depression Screening Done: Yes Source: Developed by Drs. Gagan Gaston, Aleisha Whatley, Jovan Monroe and colleagues, with an educational rosamaria from [employer]. Thrive Questionnaire Date Thrive assessed: 11/19/24 I am a: Patient What is your living situation today?: I have a steady place to live Within the past 12 months, did the food you bought not last and you didn't have the money to get more?: Never true Within the past 12 months, did you worry whether your food would run out before you got money to buy more?: Never true Do you have trouble paying for medicines?: No Do you have trouble getting transportation to medical appointments?: No Do you have trouble paying your heating and electricity bill?: No Do you have trouble taking care of your child, family member or friend?: No Do you have trouble with day-to-day activities such as bathing, preparing meals, shopping, managing finances, etc.?: No Are you currently unemployed and looking for a job?: No Are you interested in more education?: No Please select the resources that you would like help with: None THRIVE Score: 0 AUDIT C Alcohol Use Questionnaire (AUDIT-C) 1. How often do you have a drink containing alcohol?: 2-3 times a week 2. How many drinks containing alcohol do you have on a typical day when you are drinking?: 1 or 2 3. How often do you have six or more drinks on one occasion?: Never Total Score: 3 ZO-7 AMB Questionnaire ZO-7 Date ZO - 7 assessed: 11/19/24 Feeling nervous, anxious, or on edge: 0 = Not at all Not being able to stop or control worryin = Not at all Worrying too much about different things: 0 = Not at all Trouble relaxin = Not at all Being so restless that it is hard to sit still: 0 = Not at all Becoming easily annoyed or irritable: 0 = Not at all Feeling afraid as if something awful might happen: 0 = Not at all Total ZO-7 score (0-4 normal; 5-9 mild; 10-14 moderate; 15-21 severe): 0 Source: Developed by Drs. Gagan Gaston, Aleisha Whatley, Jovan Monroe and colleagues, with an educational rosamaria from [employer]. Physical exam (Primary Care) Vital Signs: Last Vital Signs Temp 97.7 F 11/19/24 10:37 Pulse 55 11/19/24 10:37 Resp 14 11/19/24 10:37 BP 169/78 H 11/19/24 10:37 Pulse Ox 99 11/19/24 10:37 Oxygen Delivery Method Room Air 11/19/24 10:37 BMI result Body Mass Index 29.1 Tobacco/Smoking Status: Tobacco use Status Tobacco use date assessed 11/19/24 11/19/24 10:35 Patient Tobacco Use Status Never used Tobacco 11/19/24 10:41 PHQ-9: PHQ-9 Score PHQ-9: Total score 0 11/19/24 10:35 Depression Screening Interpretation: Negative Thrive Assessment: Date of Thrive Assessment Date Thrive assessed 11/19/24 11/19/24 10:35 Const General: cooperative and healthy appearing Nutritional Appearance: well nourished Orientation/consciousness: patient oriented x3 Limitations: no limitations HENMT Head: Yes normal to inspection Eyes General: appearance normal, both eyes and all related structures Neck Neck: Yes normal visual inspection Chest Chest palpation & inspection: normal palpation of entire chest wall Resp Effort & Inspection: normal respiratory effort Other: Penis:Shaft: Right side: small 1 cm brownish papule, no open lesion. Neuro General: patient oriented x3 Coding Level of Care Code New Pt Level 4 (37573) Complex EM visit Add On G2211 Diagnoses HTN (hypertension) I10 Screening examination for infectious disease Z11.9 Assessment & Plan Assessment & Plan (1) HTN (hypertension): Comment: On losartan Code(s): I10 - Essential (primary) hypertension Category: Medical Plan: Increased to losartan to 100 mg a day (2) Screening examination for infectious disease: Code(s): Z11.9 - Encounter for screening for infectious and parasitic diseases, unspecified Plan: Patient was reassured that the lesion on the penis is not a syphilitic chancre. Blood work has been ordered. Orders: Orders Complete Blood Count no Diff Today Z11.9 - Encounter for screening for infectious and parasitic diseases, unspecified C Reactive Protein Today Z11.9 - Encounter for screening for infectious and parasitic diseases, unspecified CT NG by PCR Today Z11.9 - Encounter for screening for infectious and parasitic diseases, unspecified Herpes Simplex Virus Ab IgG Today Z11.9 - Encounter for screening for infectious and parasitic diseases, unspecified Basic Metabolic Panel Today Z11.9 - Encounter for screening for infectious and parasitic diseases, unspecified Lipid Panel Today Z11.9 - Encounter for screening for infectious and parasitic diseases, unspecified Liver Panel Today Z11.9 - Encounter for screening for infectious and parasitic diseases, unspecified HIV Ab/Ag Today Z11.9 - Encounter for screening for infectious and parasitic diseases, unspecified Thyroid Stimulating Hormone Today Z11.9 - Encounter for screening for infectious and parasitic diseases, unspecified UA and rflx microscopic Today Z11.9 - Encounter for screening for infectious and parasitic diseases, unspecified RPR Monitor reflex titer Today Z11.9 - Encounter for screening for infectious and parasitic diseases, unspecified
[2024-11-19 10:37] VITALS: BP 169/78; PULSE 55; RESP 14; TEMP 36.5; O2SAT 99; BMI 29.1
--- OUTSIDE RECORDS SUMMARY | 2024-11-19 11:59 | XMS_ITS | Encounter Summary ---
Author Organization [facility] Address [address] [place] [address] Phone Care Team Providers Care Field Care Coordinator Name Role Phone Unavailable Primary Care Provider Unavailabl e Reason for Visit * Reason Onset Date Comments Results 11/05/2024 Encounter Details Date Type Department Care Team (Late st Contact Info) Description 11/05/2024 Telephone [facility] [place] [address] [place] [address] Gamal Chavez PA [address] [place] [address] Results Social History Tobacco Use Types Packs/Day Years Used Date Smoking Tobacco: Never Smokeless Tobacco: Never Sex and Gender Information Value Date Recorded Sex Assigned at Not on file Legal Sex Male 6:59 AM EDT Gender Identity Not on file Sexual Orientation Not on file documented as of this encounter Miscellaneous Notes * Telephone Encounter - Felisha Giang - 11/05/2024 1:06 PM EDT Patient would like a call concerning his results as soon as they come in so he can follow up with an outside provider documented in this encounter Plan of Treatment Not on file documented as of this encounter Visit Diagnoses Not on filedocumented in this encounter
== END 2024-11-19 11:10 | disposition home or self-care (01) ==
LOC: HO.HMCSH 10:20
PROVIDERS: PCP Internal Medicine; Visit Provider Internal Medicine
DX: I10 Essential (primary) hypertension (principal); Z11.9 Encounter for screening for infectious and parasitic diseases, unspecified

== ENCOUNTER → 2024-11-19 10:20 | Outpatient (BNVA) | payer BC, SELFPAY | PROVIDERS: PCP Internal Medicine; Visit Provider Internal Medicine ==

== ENCOUNTER 2024-11-19 15:13 | Outpatient (REF) | payer BC, SELFPAY ==
[2024-11-19 18:12] LABS: Appearance Urine Clear; Color Urine Yellow; Glucose Urine UA Negative (Negative); Leukocyte Esterase Urine Negative (Negative); Nitrite Urine Negative (Negative); PH 5.5 (5.0-9.0); Urine Blood Negative (Negative); Urine Ketones Negative (Negative); Urine Protein Negative (Neg-Trace)
[2024-11-19 18:22] LABS: Hematocrit 40.1 % (42.0-52.0); Hemoglobin 14.2 g/dl (14.0-18.0); Mean Corpuscular HGB Conc 35.4 g/dl (31.0-36.0); Mean Corpuscular Hemoglobin 31.6 pg (27.0-33.0); Mean Corpuscular Volume 89.3 fL (80.0-98.0); Mean Platelet Volume 10.2 fL (9.4-12.4); Platelet Count 231 X10*3/uL (160-400); Red Blood Count 4.49 X10*6/uL (4.60-5.80); Red Cell Distribution Width 12.2 % (11.0-16.0)
[2024-11-19 18:50] LABS: Alanine Aminotransferase 18 U/L (0-40); Albumin Level 4.3 g/dL (3.5-5.0); Alkaline Phosphatase 83 U/L (39-117); Anion Gap 10 (12-20); Aspartate Amino Transferase 28 U/L (5-37); Bilirubin Direct 0.2 mg/dL (0.0-0.5); Bilirubin Total 0.4 mg/dL (0.0-1.0); Blood Urea Nitrogen 18 mg/dL (9-16); C Reactive Protein < 0.10 mg/dL (< or = 0.50); Calcium 8.8 mg/dL (8.4-10.2); Carbon Dioxide 27 mmol/L (22-29); Chloride 110 mmol/L (96-108); Cholesterol 132 mg/dL (<200); Estimated Glomerular Filt Rate > 60; HDL Cholesterol 40 mg/dL (>40); LDL Cholesterol Calculated 74 mg/dL (<100); Potassium 3.8 mmol/L (3.3-5.1); Sodium 143 mmol/L (135-145); Total Protein 6.6 g/dL (6.5-8.0); Triglycerides 93 mg/dL (<150)
[2024-11-19 18:53] LABS: Thyroid Stimulating Hormone 1.26 uIU/mL (0.32-4.0)
[2024-11-19 19:19] LABS: Glucose Random 54 mg/dL (60-115)
[2024-11-20 03:02] LABS: CT PCR NOT DETECTED (Not Detect.); NG PCR NOT DETECTED (Not Detect.)
[2024-11-20 05:54] LABS: Herpes Simplex Type 1 IgG <0.90 index; Herpes Simplex Type 2 IgG <0.90 index
[2024-11-20 08:11] LABS: HIV AB/AG Nonreactive (Nonreactive); HIV Num 1 0.05 S/CO (0.00-0.99)
[2024-11-22 13:44] LABS: RPR Rapid Plasma Reagin NON-REACTIVE (NON-REACTIVE)
== END 2024-11-19 15:14 | disposition home or self-care (01) ==
LOC: HO.WFDLDS 15:13
PROVIDERS: Visit Provider Internal Medicine
DX: Z11.9 Encounter for screening for infectious and parasitic diseases, unspecified (principal); Z11.3 Encounter for screening for infections with a predominantly sexual mode of transmission
CPT/HCPCS: 80048; 80061; 80076; 81003; 84443; 85027; 86140; 86592; 86695; 86696; 87389; 87491; 87591

== ENCOUNTER 2024-12-17 13:07 | Outpatient (AMB) | payer BC, SELFPAY ==
[2024-12-17 13:08] VITALS: BP 177/95; PULSE 58; RESP 14; TEMP 36.8; O2SAT 98; BMI 29.1
--- NOTE | 2024-12-17 13:08 | A.OFFPC_ITS ---
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 Required: No Accompanied by: Self / Same As Patient Allergies No Known Allergies Allergy (Verified 12/17/24 13:09) Medication List - Last Reconciled 12/17/24 by Tanvir Eller MD losartan 100 mg PO DAILY multivitamin 1 tab PO DAILY omeprazole mg DAILY sildenafil 50 mg PO DAILY PRN tirzepatide (weight loss) (Zepbound) 15 mg (0.5 mL) subcut QWEEK Tobacco use date assessed: 12/17/24 Dental Screening Dental Screen Date: 11/19/24 [facility] Medical History Hyperplastic polyp of intestine Chest pain Trinidad's esophagus HTN (hypertension) Surgical History History of esophagogastroduodenoscopy (EGD) (~09/10/24) H/O colonoscopy (~02/17/23) History of dental surgery S/P carpal tunnel release S/P tonsillectomy Family History Father Esophageal cancer Mother Tongue cancer Cancer of neck Diabetes Social History Household Members: Spouse Housing: House Alcohol intake: current Alcohol intake frequency: a few times a week Patient Tobacco Use Status: Never used Tobacco service: No Current occupational status: employed Cognitive needs: No Hearing needs: Yes (has b/l hearing aids but does not use) Vision needs: Yes (rx glasses) Questionnaire PHQ-9 Over the last 2 weeks, how often have you been bothered by any of the following problems? 1. Little interest or pleasure in doing things: not at all 2. Feeling down, depressed, or hopeless: not at all 3. Trouble falling or staying asleep, or sleeping too much: not at all 4. Feeling tired or having little energy: not at all 5. Poor appetite or overeating: not at all 6. Feeling bad about yourself - or that you are a failure or have let yourself or your family down: not at all 7. Trouble concentrating on things, such as reading the newspaper or watching television: not at all 8. Moving or speaking so slowly that other people could have noticed. Or the opposite - being so fidgety or restless that you have been moving around a lot more than usual: not at all 9. Thoughts that you would be better off or of hurting yourself in some way: not at all Total score: 0 Depression Screening Interpretation: Negative Depression Screening Done: Yes Source: Developed by Drs. Gagan Gaston, Aleisha Whatley, Jovan Monroe and colleagues, with an educational rosamaria from [employer]. Thrive Questionnaire Date Thrive assessed: 11/19/24 I am a: Patient What is your living situation today?: I have a steady place to live Within the past 12 months, did the food you bought not last and you didn't have the money to get more?: Never true Within the past 12 months, did you worry whether your food would run out before you got money to buy more?: Never true Do you have trouble paying for medicines?: No Do you have trouble getting transportation to medical appointments?: No Do you have trouble paying your heating and electricity bill?: No Do you have trouble taking care of your child, family member or friend?: No Do you have trouble with day-to-day activities such as bathing, preparing meals, shopping, managing finances, etc.?: No Are you currently unemployed and looking for a job?: No Are you interested in more education?: No Please select the resources that you would like help with: None THRIVE Score: 0 AUDIT C Alcohol Use Questionnaire (AUDIT-C) 1. How often do you have a drink containing alcohol?: 2-3 times a week 2. How many drinks containing alcohol do you have on a typical day when you are drinking?: 1 or 2 3. How often do you have six or more drinks on one occasion?: Never Total Score: 3 ZO-7 AMB Questionnaire ZO-7 Date ZO - 7 assessed: 11/19/24 Feeling nervous, anxious, or on edge: 0 = Not at all Not being able to stop or control worryin = Not at all Worrying too much about different things: 0 = Not at all Trouble relaxin = Not at all Being so restless that it is hard to sit still: 0 = Not at all Becoming easily annoyed or irritable: 0 = Not at all Feeling afraid as if something awful might happen: 0 = Not at all Total ZO-7 score (0-4 normal; 5-9 mild; 10-14 moderate; 15-21 severe): 0 Source: Developed by Drs. Gagan Gaston, Aleisha Whatley, Jovan Monroe and colleagues, with an educational rosamaria from [employer]. Physical exam (Primary Care) Vital Signs: Last Vital Signs Temp 98.3 F 12/17/24 13:08 Pulse 58 12/17/24 13:08 Resp 14 12/17/24 13:08 BP 177/95 H 12/17/24 13:08 Pulse Ox 98 12/17/24 13:08 Oxygen Delivery Method Room Air 12/17/24 13:08 Care Plan Goal for BP management: Amlodipine added to the regimen BMI result Body Mass Index 29.1 Tobacco/Smoking Status: Tobacco use Status Tobacco use date assessed 12/17/24 12/17/24 13:14 Patient Tobacco Use Status Never used Tobacco 12/17/24 13:14 PHQ-9: PHQ-9 Score PHQ-9: Total score 0 12/17/24 13:14 Depression Screening Interpretation: Negative Thrive Assessment: Date of Thrive Assessment Date Thrive assessed 11/19/24 12/17/24 13:14 Coding Level of Care Code Est Pt Level 4 (38229) Complex EM visit Add On G2211 Diagnoses HTN (hypertension) I10 Assessment & Plan Assessment & Plan (1) HTN (hypertension): Comment: On losartan Code(s): I10 - Essential (primary) hypertension Category: Medical Plan: Losartan 100 mg a day, Amlodipine 10 mg a day added to the regimen. Plan History of Present Illness - The patient is a 59-year-old male presenting with hypertension and hypoglycemia. - Hypertension: The patient has been experiencing elevated blood pressure readings, with home measurements around 135/95 mmHg. He is currently on losartan 100 mg, which he has doubled up as per previous instructions. - Hypoglycemia: The patient reported a low blood sugar incident, which was addressed by purchasing a glucose monitor. Subsequent readings have been around 100 mg/dL. Social History - The patient is employed and reports no issues with work. - The patient plans to travel to [place] for leisure, indicating a level of physical activity and social engagement. Review of Systems - Cardiovascular: Reports elevated blood pressure readings at home. - Endocrine: Reports a low blood sugar incident, with current readings around 100 mg/dL. Physical Exam General: Cooperative and healthy appearing Nutritional Appearance: Well nourished Orientation/consciousness: Patient oriented x3 Limitations: No limitations Head: Normal to inspection General: Appearance normal, both eyes and all related structures Neck: Normal visual inspection Chest: Normal palpation of entire chest wall Respiratory: Normal respiratory effort Neurology: Patient oriented x3 Results Plan 1. Essential Hypertension - Continue losartan 100 mg daily. Add hydrochlorothiazide once daily to the regimen. - Consider adding amlodipine if blood pressure remains uncontrolled. Monitor blood pressure readings at home and report to the office. 2. Hypoglycemia - Monitor blood glucose levels regularly with the newly purchased glucose monitor. Discussion Notes During the visit, we discussed the management of hypertension, including the addition of hydrochlorothiazide to the current regimen of losartan. We also considered the potential addition of amlodipine if blood pressure remains uncontrolled. The importance of regular blood pressure monitoring at home was emphasized. For hypoglycemia, the patient was advised to continue monitoring blood glucose levels with the new device. Follow-up was scheduled for six months to reassess the management plan. Patient Instructions - Continue taking losartan 100 mg daily and start hydrochlorothiazide once daily . - Monitor your blood pressure at home regularly and report the readings to the office. - Use your glucose monitor to check blood sugar levels regularly. - Follow up in six months for reassessment. Medications: Changed From losartan 50 mg PO DAILY 90 tabs 1RF To losartan 100 mg PO DAILY
--- OUTSIDE RECORDS SUMMARY | 2024-12-17 13:48 | XMS_ITS | Clinical Summary ---
Author Organization [address] Address [address] [place] [address] Care Team Providers Care Flatwork Tier Name Role Phone Unavailable Primary Care Provider Unavailabl e Allergies No known active allergies Medications losartan (COZAAR) 50 mg tablet 08/28/2024 Active ibuprofen (ADVIL,MOTRIN) 800 mg tablet 07/17/2024 Active omeprazole (PRILOSEC) 20 mg capsule 08/24/2024 Active ZEPBOUND 15 mg/0.5 mL Pen Injector 11/02/2024 Act ember valACYclovir (VALTREX) 500 mg tablet 10/31/2024 Active Active Problems Problem Noted Date Diagnosed Date Normal exam 11/08/2024 Encounters Date Type Department Care Team Description 11/08/2024 8:30 AM EDT Office Visit [facility] [address] [place] [address] Gamal Chavez PA Normal exam (Primary Dx) 11/05/2024 Telephone [facility] [address] [place] [address] Gamal Chavez PA Results 11/03/2024 Telephone [facility] [address] [place] [address] Jose Miguel Corral MD Results 11/02/2024 10:15 AM EDT Office Visit [facility] [address] [place] [address] Jose Miguel Rodriguez', STI (sexually transmitted infection) (Primary Dx) from Last 3 Months Social History Tobacco Use Types Packs/Day Years Used Date Smoking Tobacco: Never Smokeless Tobacco: Never Tobacco Cessation:Counseling Given: Not Answered Sex and Gender Information Value Date Recorded Sex Assigned at Not on file Legal Sex Male 6:59 AM EDT Gender Identity Not on file Sexual Orientation Not on file Last Filed Vital Signs Vital Sign Reading Time Taken Comments Blood Pressure 157/90 11/08/2024 8:31 AM EDT Pulse 66 11/08/2024 8:31 AM EDT Temperature 36.7 C (98.1 F) 11/08/2024 8:31 AM EDT Respiratory Rate 20 11/08/2024 8:31 AM EDT Oxygen Saturation 100% 11/08/2024 8:31 AM EDT Inhaled Oxygen Concentration - - Weight 90.7 kg (199 lb 15.3 oz) 11/08/2024 8:31 AM EDT Height 175.3 cm (5' 9 ) 11/08/2024 8:31 AM EDT Body Mass Index 29.53 11/08/2024 8:31 AM EDT Plan of Treatment Health Maintenance Due Date Last Done Comments HIV screening 1979 Hepatitis C screening 1984 Tetanus adult (Td q 10,TDAP once) 1986 Lipid disorder screening 2006 Colon cancer screening, Colonoscopy 2011 Diabetes screening 2011 Pneumococcal Vaccine (50+ ye ars) (1 of 1 - PCV) 2016 Shingles vaccine (Shingrix) (1 of 2 - Shingrix (RZV) 2 Dose Standard Series) 2016 Covid-19 vaccine series ( - 2023- season) 2024 Influenza vaccine 02/10/2025 RSV Immunization (1 - 1-dose 75+ series) 2041 Meningococcal Vaccine Aged Out No jason frandy eligible based on patient's age to complete this topic Procedures Procedure Name Priority Date/Time Associated Diagnosis Comments SURESWAB MYCOPLASMA/UREAPLAS MA PANEL, PCR (Q) Routine 11/02/2024 10:43 AM EDT STI (sexually transmitted infection) POCT URINALYSIS 10SG ([facility]) Routine 11/02/2024 10:02 AM EDT STI (sexually transmitted infection) from Last 3 Months Results * Sureab Mycoplasma/Ureaplasma panel, PCR (Q) (11/02/2024 10:43 AM EDT) [facility] Mycoplasma hominis, PCR Not Detected Not Detected [facility] Mycoplasma genitalium, rRNA,TMA Not Detected Not Detected [facility] Comment: Ureaplasma parvum DNA Not Detected Not Detected [facility] Ureaplasma urealyticum DNA Not Detected Not Detected [facility] Comment: This test was developed and its analytical performance characteristics have been determined by [facility] [place], [place]. It has not been cleared or approved by the FDA. This assay has been validated pursuant to the CLIA regulations and is used for clinical purposes. Penis 11/02/2024 10:4 3 AM EDT 11/03/2024 7:18 PM EDT Narrative Resulting Agency Comment Performing Lab: Site ID: [id number] Name: [facility] Address: [address] [place] [address] [place], [place] Director: Alexis Sal M.D.,PhD us Jose Miguel Serranoon DO BODY FLUIDS AND [facility] OOLS ORDERABLES Final Result [facility] [address] [place] [address] * (ABNORMAL) POCT Urinalysis 10SG(In-Clinic) (11/02/2024 10:02 AM EDT) [facility] POC Leukocytes, UA Negative Negative POC Nitrites, UA Negative Negative POC Urobilinogen, UA Negative Negative POC Protein, UA Trace(A) Negative POC pH, UA 6.5 5.0, 5.5, 6.0, 6.5, 7.0, 7.5, 8.0 POC Blood, UA Negative Negative POC Specific [place], UA 1.015 1.005, 1.010, 1.015, 1.020, 1.025, 1.030 POC Ketones, UA Negative Negative POC Bilirubin, UA Negative Negative POC Glucose, UA Negative Negative POC Clarity, UA Clear Clear POC Color, UA Yellow Yellow, Colorless POC Kit Lot Number, [id number] POC Expiration Date, UA 12/23/2025 Urine 11/02/2024 10:0 2 AM EDT Jose Miguel Rodriguez DO POINT OF CARE ORDE RS W/FUTURE Final Result from Last 3 Months Insurance [facility] BS BS
--- OUTSIDE RECORDS SUMMARY | 2024-12-17 13:48 | XMS_ITS ---
Author Name [facility] Organization Unknown History of Medication Use Medication Directions Dispensed Refills Start Date End Date Stat us ZEPBOUND 15 mg/0.5 mL Pen Injector 11/02/2024 active valACYclovir (VALTREX) 500 m g tablet 10/31/2024 active losartan (COZAAR) 50 mg tablet 08/28/2024 active omeprazole (PRILOSEC) 20 mg capsule 08/24/2024 active ibuprofen (ADVIL,MOTRIN) 800 mg tablet 07/17/2024 active Problems Problem Status Onset Date Problem Type Date of Resolution Source STI (sexually transmitted infection) active EncounterDiagnosisAct CT_[facility]AL EUC Encounters Encounter Type Encounter Reason Primary Diagnosis Location Date Ambulatory Unspecified general medical examination Unspecified general medical examination [facility] 11/08/2024 Ambulatory Venereal disease, unspecified Venereal disease, unspecified [facility] 11/02/2024 Care Team Organization Name Specialty Phone Email Start Date End Da te [facility] 11/02/2024
== END 2024-12-17 13:24 | disposition home or self-care (01) ==
LOC: HO.HMCSH 13:07
PROVIDERS: PCP Internal Medicine; Visit Provider Internal Medicine
DX: I10 Essential (primary) hypertension (principal)

== ENCOUNTER → 2025-02-17 08:14 | Outpatient (BNVA) | payer SELFPAY | PROVIDERS: PCP Internal Medicine; Visit Provider Internal Medicine | DX: Z02.79 Encounter for issue of other medical certificate (principal) ==